=== PATIENT | male | born 1940 | race Caucasian/White ===

== ENCOUNTER 2018-06-14 07:50 | Inpatient (IN) | payer OTHER ==
--- NOTE | 2018-06-10 16:36 | RAD REPORT ---
EXAM DESCRIPTION: RAD - Chest Pa And Lat (2 Views) - 06/10/2018 4:08 pm CLINICAL HISTORY: Preop chest, pending hernia repair, hypertension COMPARISON: May 2011 TECHNIQUE: PA and lateral views of the chest were obtained. FINDINGS: The lungs are clear of an acute infiltrate, mass or failure. Lung markings are similar to comparison. Heart size is normal and central vasculature is within normal limits. No pleural effus ion or pneumothorax seen. No acute bony finding noted. No aortic abnormality. IMPRESSION: No acute cardiopulmonary process. No significant change from comparison.
[2018-06-10 16:46] LABS: Absolute Lymphocytes (CBC) 1.5 K/uL (0.7-4.9); Absolute Monocytes 0.5 K/uL (0.1-1.3); Absolute Neutrophil 4.5 K/uL (1.8-8.0); Basophils % 0.4 % (0-1.3); Eosinophils % 1.3 % (0-4.4); Lymphocytes % 22.8 % (15.3-44.8); MCH 31.5 pg (27.0-35.0); MCV 91.8 fL (80-100); MPV 8.8 fL (7.6-11.3); Monocytes % 7.8 % (3.3-12.3); RBC Red Blood Cell Count 5.01 M/uL (4.33-5.43)
[2018-06-10 17:08] LABS: Potassium 4.3 mmol/L (3.5-5.1)
--- NOTE | 2018-06-11 07:19 | EKG ---
Test Date: 2018-06-10 Test Time: 16:33:50 Alumni Relations Coordinator: RADHA MEASUREMENT RESULTS: Intervals: Rate: 58 AZ: 190 QRSD: 98 QT: 402 QTc: 394 [place]: P: 55 AZ: 190 QRS: -34 T: 25 INTERPRETIVE STATEMENTS: Sinus bradycardia Left axis deviation Minimal voltage criteria for LVH, may be normal variant Abnormal ECG No previous ECG available for comparison Electronically Signed On 06-11-18 07:18:50 DRAPERY WORKER by Ang Rosales
[2018-06-14] MEDS ORDERED: FENTANYL CITR 250 MCG/5 ML ONE (08:25)
[2018-06-14] MEDS ORDERED: LIDOCAINE 2% MPF 5 ML VIAL ONE (08:25)
[2018-06-14] MEDS ORDERED: ROCURONIUM 50 MG/5 ML VIAL IV ONE (08:25)
[2018-06-14] MEDS ORDERED: MIDAZOLAM HCL 2 MG/2 ML INJ ONE (08:25)
[2018-06-14] MEDS ORDERED: PROPOFOL 200 MG/20 ML VIAL IV ONE (08:25)
[2018-06-14] MEDS ORDERED: ONDANSETRON HCL 40 MG/20 ML VIAL ONE (08:25)
[2018-06-14] MEDS ORDERED: Ringers Lactate 1,000 ML IV ONE ×2 (08:28→10:17)
[2018-06-14] MEDS ORDERED: EPHEDRINE SULF 50 MG/10 ML SYR ONE (09:53)
[2018-06-14] MEDS ORDERED: Levofloxacin 750mg IV 750 MG/150 ML BAG IV ONE (10:00)
[2018-06-14] MEDS ORDERED: KETOROLAC 30 MG/ML INJ ONE (11:12)
[2018-06-14] MEDS ORDERED: GLYCOPYRROLATE 0.2 MG/ML SYR ONE (11:17)
[2018-06-14] MEDS ORDERED: NEOSTIGMINE 1 MG/ML -5 ML SYRINGE ONE (11:18)
--- NOTE | 2018-06-14 11:28 | P.BOP ---
Preoperative diagnosis: SBO, incarcerated incisional ventral hernia Postoperative diagnosis: same Primary procedure: 1. Exploratory laparotomy, 2. Small bowel resection with anastomosis Secondary procedure: 3. Repair of incisional incarcerated ventral hernia Other procedure(s): 4. Extensive intrabdominal lysis of adhesions Ginseng Farmer: Rosa White (Annika) Estimated blood loss: <100cc Specimen: small bowel, hernia sac Findings: see dictation Anesthesia: General Complications: None Drain(s): Nasogastric Transferred to: Recovery Room Condition: Good
[2018-06-14] MEDS ORDERED: MEPERIDINE HCL 50 MG/ML AMP ONE (12:03)
[2018-06-14 12:55] VITALS: BMI 25.8
[2018-06-14] MEDS: Levofloxacin 750mg IV 750 MG/150 ML BAG IV SCH (13:02)
[2018-06-14] MEDS: NA CHLORIDE 0.9% 1,000 ML IV SCH ×2 (13:02→22:43)
[2018-06-14] MEDS: HYDROMORPHONE HCL 1 MG/ML INJ IV PRN ×2 (18:00→22:43)
[2018-06-14] MEDS: ONDANSETRON 4 MG/2 ML VIAL IV PRN (22:46)
--- NOTE | 2018-06-14 23:13 | OP ---
Date of Procedure: 06/14/2018 Surgeon: Avni Mcbride MD Surveying Technician: Alpesh Nicole Preoperative Diagnoses: Small-bowel obstruction, incarcerated incisional ventral hernia. Postoperative Diagnoses: Small-bowel obstruction, incarcerated incisional ventral hernia, plus exten sive intra-abdominal adhesions. Procedures: 1.Exploratory laparotomy. 2.A small-bowel resection with anastomosis. 3.Repair of incisional incarcerated ventral hernia. 4.Extensive lysis of intra-abdominal adhesions. Estimated Blood Loss: Less than 100 cc. Specimen: Small bowel and hernia sac. Findings: The patient has a devitalized small bowel going through an incisional ventral hernia. The patient had extensive intra-abdominal adhesions from previous abdominal surgeries. Anesthesia: General plus local. Drains: A nasogastric tube. Indications: This is the case of a 78-year-old patient, comes to us with a small-bowel obstruction. He has been on and off an abdominal pain in that area. The patient has multiple incisions in the az st. Difficult to get the surgery since it was done in another institution several years ago. Appare ntly, he has a tumor in the past requiring surgery and then another hernia required surgery. Now, he is having a small-bowel obstruction. Through this, the incisional hernia needs to be repaired. Jt efits, alternatives, and risks of above procedure were fully explained to the patient, which include but are not limited to infection, bleeding, damage to adjacent structures, anesthesia complication, r ecurrence of bowel obstructions, pain, seromas, hematoma, AZ, and even . He also understands th is may not relieve any symptoms, he might need more than one surgical intervention. He understood, s igned a consent. Description Of Procedure: The patient was brought to the operating room and placed in supine positio n. A time-out was called. Abdominal area was prepped and draped in usual sterile fashion after anes thesia was induced. A midline incision was made. Incision was carried down to fascia. We noticed d evitalized fascia. We noticed a hernia sac with the small bowel coming through it. The small bowel looked narrowed, a scar present in that region. We have to extend incision more cephalad to be able to find a nice area since we have some any adhesions not only of omentum, but also to the small bowel to the anterior abdominal wall. It took a significant amount of time, more than at least 45 minutes to 1 hour just to do the lysis of adhesions to be able to release the bowel from that region and the n bowel loops, adhesions within itself have to be released until we were able to run the small bowel and large bowel. The hernia sac was removed. The fascial edges were debrided to the point that we j ust can bring it together the end, but small bowel at some areas showed some strictures that needed t o be addressed. We obtained proximal and distal control of the section of bowel that was devitalized and needed to be removed. Lysis of adhesions were checked once again. We minimized bleeding since we used the LigaSure. Proximal and distal control was obtained. We transected proximal and distal f rom the devitalized small bowel with a LYNNE-55. The mesentery was ligated with a LigaSure. No bleedi ng. The segment of small bowel was sent to the pathologist. After that, we obtained enterotomies pr oximal and distal, run a LYNNE-55 between, then fired the LYNNE to make sure there was no bowel in betwee n. Created anastomosis and then closed the enterotomies with TA-55. Excellent lumen in between. No kink. The mesentery was closed with chromic. We ran the bowel once again. No other area of the st rictures. Irrigated the area profusely and then proceeded to check the area of extensive lysis of ad hesions. It looked clean with no bleeding. NG tube in the stomach. We did check the rest of the la rge bowel with no extraluminal tumor seen. Pelvis with no tumor palpated. The patient has multiple ventral hernias. So, we just did get that into 1 entire defect, removed devitalized tissue, and then proceeded to close the fascia with #2 nylon in a running fashion. The area was irrigated. A 3-0 ch romic was used to close the subcutaneous tissue and then the skin with staple. Sponge count and inst rument counts were correct. The patient tolerated the procedure well. The patient was sent to recovery in stable condition. POP/ALEISHA Voice ID: [id number] Report ID: [id number]
[2018-06-15 05:21] LABS: Absolute Monocytes 0.6 K/uL (0.1-1.3); Absolute Neutrophil 7.9 K/uL (1.8-8.0); Basophils % 0.1 % (0-1.3); Eosinophils % 0.1 % (0-4.4); Hematocrit 40.3 % (39.6-49.0); Lymphocytes % 10.7 % (15.3-44.8); MCH 31.5 pg (27.0-35.0); MCV 93.3 fL (80-100); MPV 9.3 fL (7.6-11.3); Monocytes % 6.7 % (3.3-12.3); RBC Red Blood Cell Count 4.32 M/uL (4.33-5.43)
[2018-06-15 05:29] LABS: Potassium 3.9 mmol/L (3.5-5.1)
[2018-06-15] MEDS: HYDROMORPHONE HCL 1 MG/ML INJ IV PRN ×4 (06:16→22:51)
[2018-06-15] MEDS: ONDANSETRON 4 MG/2 ML VIAL IV PRN ×2 (06:16→13:24)
[2018-06-15] MEDS: PANTOPRAZOLE 40 MG INJ IVP SCH (08:55)
[2018-06-15] MEDS: SODIUM CHLORIDE 0.9% 10ML INJ IV PRN (08:57)
[2018-06-15] MEDS: NA CHLORIDE 0.9% 1,000 ML IV SCH ×3 (08:58→20:13)
[2018-06-15] MEDS: Levofloxacin 750mg IV 750 MG/150 ML BAG IV SCH (12:14)
--- NOTE | 2018-06-15 19:40 | PN ---
Date of Progress Note: 06/14/2018 Diagnoses: Small bowel obstruction, incarcerated incisional ventral hernia, extensive intraabdominal adhesions. Procedure: Laparotomy, bowel resection, repair of incisional incarcerated ventral hernia, and extens terra lysis of adhesions. The patient was doing well, out of bed. The physical therapy is working on him with ambulation. Usi ng incentive spirometry. NG tube is minimal. Physical Examination: Chest: Clear. Abdomen: Intact surgical site. Extremities: No calf tenderness. Laboratory Data: Blood work shows a WBC count of 9.6 with hemoglobin of 13.6 and chloride is 109. Plan: Discontinue NG tube, continue fluid; continue antibiotics, ambulation, incentive spirometry, a nd SCDs. We are going to be watching his blood pressure since he is not taking any diet [place] [facility] [place] because we have a fresh anastomosis, so the medical doctor will help us to control in case the blo od pressure becomes an issue. POP/ALEISHA Voice ID: [id number] Report ID: [id number]
--- NOTE | 2018-06-15 21:59 | P.CNS ---
Date of Consult: 06/15/18 - Date of Service Date of Service: 06/15/18 - Chief Complaint Reason for admission: SBO, incarcerated ventral hernia - History of Present Illness This is a 78 year old male with hx of HTN admitted for SBO and incarcerated incisional hernia. He has had complaints of abdominal pain, on and off. He has a history of multiple incisions in the past, recurrent hernia and a possible Ex- lap? Per patient, he has a history of ? small calcified mass? that needed to be removed and this required an "open surgery." He then had a hernia repair surgery as well. Patient is a poor historian and we are unable to get records for exact procedures/diagnoses. He presented to us with a SBO. He is now s/p an Ex-lap, SBO resection with anastomosis, repair of incisional, incarcerated ventral hernia and lysis of adhesions. He required NG tube placement post surgery, which has now been removed. He denies any abdominal pain at this time. He has not passed any gas and has not had any bowel movement. He is doing well otherwise - Allergies Allergies/Reactions: Allergy/AdvReac Type Severity Reaction Status Date / Time Penicillins AdvReac Itching/Hiv Verified 06/10/18 16:03 es/Rash Tetanus Vaccines and Toxoid AdvReac Itching/Hiv Verified 06/10/18 16:03 es/Rash - Home Medications Home Medications List: Reviewed Medication Instructions Recorded Losartan Potassium [Cozaar] 50 mg PO DAILY 06/10/18 Ubidecarenone [Co Q-10] 50 mg PO DAILY 06/14/18 - Review of Systems General: Unremarkable Eyes: Unremarkable ENT: Unremarkable Respiratory: Unremarkable Cardiovascular: Unremarkable Gastrointestinal: Nausea, As per HPI Genitourinary: Unremarkable Musculoskeletal: Unremarkable Integumentary: Unremarkable Neurological: Unremarkable Lymphatics: Unremarkable - Past Medical History -: htn -: arthritis -: umbilical hernia -: cancer sinus -: cataracts Has patient received pneumonia vaccine in the past: No Diabetic: No - Past Surgical History -: SINUS CA -: TONSILS -: CYST RT SIDE -: UMBILICAL HERNIA - Family History Father -: Heart disease Mother -: Cancer Notes: stomach - Social History Smoking Status: Former smoker Alcohol use: Yes CD- Drugs: No Caffeine use: Yes Place of Residence: Home - Physical Examination Weight: 160 lb Height: 5 ft 6 in Vital Signs: Temp Pulse Resp BP Pulse Ox 99.5 F 80 18 153/81 H 93 06/15/18 16:00 06/15/18 16:00 06/15/18 16:00 06/15/18 16:00 06/15/18 16:00 General: Awake, alert, oriented, not in distress, Other HEENT: Head atraumatic, normocephalic, Conjunctivae non-erythematous, Sclerae white, Mouth no thrush or edema, Ears/Nose no mass, lesion or discharge noted Neck: Supple, No JVD, lymph nodes, bruit or thyromegaly noted Chest: Unremarkable Lungs: Bilateral good equal air entry, Clear to auscultation, No rhonchi, No rales Heart: Normal heart sounds, No murmur or gallop Abdomen: Soft, Bowel sounds normal, No guarding, rigidity, tenderness or mass noted, No hepatosplenomegaly, distention or bruit noted, Other (Dressing clear, dry and intact) Extremities: No leg edema, No calf tenderness Skin: No rash, ulcer or cellulitis Lymphatics: No lymph node enlargement in neck, or supraclavicular, infraclavicular region Neurological: No focal neurological deficit External Genitalia: Deferred Rectal: Deferred - Studies Laboratory Data (last 24 hrs) 06/15/18 04:06: Sodium 142, Potassium 3.9, BUN 9, Creatinine 1.00, Glucose 111 H 06/15/18 04:06: WBC 9.6 D, Hgb 13.6, Hct 40.3, Plt Count 160 D - Assessment and Plan This is a 78 yr old male with: SBO s/p surgical intervention (Ex-lap, SBO resection with anastomosis, repair of incisional hernia and lysis of adhesions) Doing well s/p NGT removal, diet per surgery/primary team Pain control with IV medications Incarcerated, incisional ventral hernia s/p repair. HTN Patient on losartan at home. Will hold PO medication at this time and will restart once tolerating PO IV hydralazine ordered prn in the meanwhile We will continue to monitor BP and adjust medications as required Thank you for this consult. We will continue to follow patient with you. - Physician Review Physician Review: Patient Assessed, Agree with Above Assessment and Plan Time Spent Managing Pts Care (In Minutes): 45
[2018-06-16] MEDS: NA CHLORIDE 0.9% 1,000 ML IV SCH ×2 (05:29→14:39)
[2018-06-16] MEDS: SODIUM CHLORIDE 0.9% 10ML INJ IV PRN (08:25)
[2018-06-16] MEDS: PANTOPRAZOLE 40 MG INJ IVP SCH (08:25)
[2018-06-16] MEDS: HYDROMORPHONE HCL 1 MG/ML INJ IV PRN ×3 (08:26→23:25)
[2018-06-16] MEDS: HYDRALAZINE HCL 20 MG/ML VIAL IV PRN (08:36)
[2018-06-16] MEDS: Levofloxacin 750mg IV 750 MG/150 ML BAG IV SCH (12:52)
--- NOTE | 2018-06-16 18:42 | P.PN ---
Subjective Date of Service: 06/19/18 Chief Complaint: SBO, incarcerated ventral hernia Subjective: No new changes, Improving Review of Systems As noted Physical Examination - Vital Signs Temperature: 98.4 F Blood Pressure: 151/96 Pulse: 85 Respirations: 18 Pulse Ox (%): 95 - Physical Exam General: Alert, In no apparent distress HEENT: Atraumatic, PERRLA, EOMI Neck: Supple, JVD not distended Respiratory: Clear to auscultation bilaterally, Normal air movement Cardiovascular: Regular rate/rhythm, Normal S1 S2 Gastrointestinal: Normal bowel sounds, No tenderness Musculoskeletal: No tenderness Integumentary: No rashes Neurological: Normal speech, Normal tone, Normal affect Lymphatics: No axilla or inguinal lymphadenopathy Assessment And Plan - Plan This is a 78 yr old male with: SBO s/p surgical intervention (Ex-lap, SBO resection with anastomosis, repair of incisional hernia and lysis of adhesions) Doing well s/p NGT removal, diet per surgery/primary team Pain control with IV medications Incarcerated, incisional ventral hernia s/p repair. HTN Patient on losartan at home. Will hold PO medication at this time and will restart once tolerating PO IV hydralazine ordered prn in the meanwhile We will continue to monitor BP and adjust medications as required Thank you for this consult. We will continue to follow patient with you. Physician Review: Patient Assessed, Agree with Above Assessment and Plan
[2018-06-17] MEDS: NA CHLORIDE 0.9% 1,000 ML IV SCH ×4 (01:14→20:00)
[2018-06-17] MEDS: HYDROMORPHONE HCL 1 MG/ML INJ IV PRN ×2 (08:59→18:40)
[2018-06-17] MEDS: PANTOPRAZOLE 40 MG INJ IVP SCH (08:59)
[2018-06-17] MEDS: HYDRALAZINE HCL 20 MG/ML VIAL IV PRN (09:00)
[2018-06-17] MEDS: SODIUM CHLORIDE 0.9% 10ML INJ IV PRN (09:01)
[2018-06-17] MEDS: Levofloxacin 750mg IV 750 MG/150 ML BAG IV SCH (12:36)
[2018-06-17] MEDS ORDERED: LOSARTAN POTASSIUM 50 MG TABLET PO ONE (18:00)
--- NOTE | 2018-06-17 21:29 | P.PN ---
Subjective Date of Service: 06/19/18 Chief Complaint: SBO, incarcerated ventral hernia Subjective: No new changes, No C/O voiced, Improving Review of Systems As noted Physical Examination - Vital Signs Temperature: 98.7 F Blood Pressure: 157/90 Pulse: 80 Respirations: 18 Pulse Ox (%): 95 - Physical Exam General: Alert, In no apparent distress HEENT: Atraumatic, PERRLA, EOMI Neck: Supple, JVD not distended Respiratory: Clear to auscultation bilaterally, Normal air movement Cardiovascular: Regular rate/rhythm, Normal S1 S2 Gastrointestinal: Normal bowel sounds, No tenderness Musculoskeletal: No tenderness Integumentary: No rashes Neurological: Normal speech, Normal tone, Normal affect Lymphatics: No axilla or inguinal lymphadenopathy Assessment And Plan - Plan This is a 78 yr old male with: SBO s/p surgical intervention (Ex-lap, SBO resection with anastomosis, repair of incisional hernia and lysis of adhesions) Doing well s/p NGT removal, diet per surgery/primary team Pain control with IV medications Incarcerated, incisional ventral hernia s/p repair. HTN Patient on losartan at home. Restart home PO medications IV hydralazine ordered prn in the meanwhile We will continue to monitor BP and adjust medications as required Thank you for this consult. We will continue to follow patient with you. Physician Review: Patient Assessed, Agree with Above Assessment and Plan
[2018-06-18] MEDS: PANTOPRAZOLE 40 MG INJ IVP SCH (08:59)
[2018-06-18] MEDS: SODIUM CHLORIDE 0.9% 10ML INJ IV PRN (09:00)
[2018-06-18] MEDS: LOSARTAN POTASSIUM 50 MG TABLET PO SCH (09:00)
[2018-06-18] MEDS: UBIDECARENONE 50 MG PO SCH (09:00)
[2018-06-18] MEDS: NA CHLORIDE 0.9% 1,000 ML IV SCH ×4 (10:19→22:01)
[2018-06-18] MEDS: Levofloxacin 750mg IV 750 MG/150 ML BAG IV SCH (12:27)
--- NOTE | 2018-06-18 13:21 | P.PN ---
Subjective Date of Service: 06/17/18 Chief Complaint: SBO, incarcerated ventral hernia Subjective: Ambulating, Improving Review of Systems Respiratory: Unremarkable Cardiovascular: Unremarkable Gastrointestinal: Vomiting (no), Distention, Melena (no), Hematochezia (no), As per HPI Physical Examination - Vital Signs Temperature: 98.6 F Blood Pressure: 153/85 Pulse: 60 Respirations: 16 Pulse Ox (%): 98 - Physical Exam General: Alert, In no apparent distress HEENT: PERRLA, EOMI Gastrointestinal: Hypoactive, Distended Musculoskeletal: No erythema, No tenderness, No warmth Assessment And Plan - Plan clears Oob Incentive spirometry Physician Review: Patient Assessed, Agree with Above Assessment and Plan
--- NOTE | 2018-06-18 18:22 | PN ---
Diagnoses: Small bowel obstruction, incarcerated incisional ventral hernia status post repair, exten sive intra-abdominal adhesions. Subjective: The patient is doing better. Finally today, he started to pass some gas this afternoon. No fever. Ambulating. Review of Systems: Ten points otherwise unremarkable. Objective: Chest: Clear. Abdomen: Soft and depressible. Intact midline incision. Extremities: No calf tenderness. Plan: We are going to advance to soft diet. If he can tolerate diet, then he will be able to be dis charged home. The diet will this afternoon. We already gave him medications for his blood pressure with the help of the hospitalist. He understands, if he gets discharged, the importance of no heavy lifting, and follow up in my office in 1 week. POP/ALEISHA Voice ID: [id number] Report ID: [id number]
[2018-06-18 23:33] VITALS: O2SAT 97
[2018-06-19] MEDS: NA CHLORIDE 0.9% 1,000 ML IV SCH ×2 (01:20→12:00)
[2018-06-19] MEDS: UBIDECARENONE 50 MG PO SCH (09:00)
[2018-06-19] MEDS: LOSARTAN POTASSIUM 50 MG TABLET PO SCH (09:01)
[2018-06-19] MEDS: PANTOPRAZOLE 40 MG INJ IVP SCH (09:01)
--- NOTE | 2018-06-19 11:02 | P.DS ---
Admission Date: 06/14/18 Discharge Date: 06/19/18 Disposition: ROUTINE DISCHARGE Discharge Condition: GOOD Reason for Admission: SBO, incarcerated ventral hernia Hospital Course: unremarkable Vital Signs/Physical Exam: Temp Pulse Resp BP Pulse Ox 97.9 F 84 18 156/89 H 92 06/19/18 08:00 06/19/18 08:00 06/19/18 08:00 06/19/18 08:00 06/19/18 08:00 General: Alert, In no apparent distress, Oriented x3, Cooperative HEENT: PERRLA, EOMI Neck: Supple Gastrointestinal: Soft and benign (intact midline) Integumentary: No erythema, No warmth, No cyanosis Neurological: Normal gait, Normal speech Laboratory Data at Discharge: WBC 9.6 K/uL (4.3-10.9) D 06/15/18 04:06 Hgb 13.6 g/dL (13.6-17.9) 06/15/18 04:06 Hct 40.3 % (39.6-49.0) 06/15/18 04:06 Plt Count 160 K/uL (152-406) D 06/15/18 04:06 Sodium 142 mmol/L (136-145) 06/15/18 04:06 Potassium 3.9 mmol/L (3.5-5.1) 06/15/18 04:06 BUN 9 mg/dL (7-18) 06/15/18 04:06 Creatinine 1.00 mg/dL (0.55-1.3) 06/15/18 04:06 Glucose 111 mg/dL (74-106) H 06/15/18 04:06 Home Medications: Losartan Potassium [Cozaar] 50 mg PO DAILY 06/10/18 Ubidecarenone [Co Q-10] 50 mg PO DAILY 06/14/18 Patient Discharge Instructions: abdominal binder while out of bed. Soft diet Diet: AHA Activity: No lifting more than 10 lbs Followup: Avni Mcbride MD [ACTIVE - CAN ADMIT] - 1 Week
[2018-06-19] MEDS: HYDROMORPHONE HCL 1 MG/ML INJ IV PRN (11:06)
[2018-06-19] MEDS: Levofloxacin 750mg IV 750 MG/150 ML BAG IV SCH (11:06)
[2018-06-19 17:47] VITALS: BP 151/96; TEMP 98.4
--- NOTE | 2018-06-19 17:48 | P.PN ---
Subjective Date of Service: 06/19/18 Chief Complaint: SBO, incarcerated ventral hernia Subjective: No new changes, No C/O voiced, Tolerating diet, Improving Patient seen and examined at bedside. No family at bedside. Chart reviewed and case discussed with nursing staff. Review of Systems As noted Physical Examination - Vital Signs Temperature: 98.4 F Blood Pressure: 151/96 Pulse: 85 Respirations: 18 Pulse Ox (%): 95 - Physical Exam General: Alert, In no apparent distress, Oriented x3 HEENT: Atraumatic, PERRLA, EOMI Neck: Supple, JVD not distended Respiratory: Clear to auscultation bilaterally, Normal air movement Cardiovascular: Regular rate/rhythm, Normal S1 S2 Gastrointestinal: Normal bowel sounds, No tenderness Musculoskeletal: No tenderness Integumentary: No rashes Neurological: Normal speech, Normal tone, Normal affect Lymphatics: No axilla or inguinal lymphadenopathy Assessment And Plan - Plan This is a 78 yr old male with: SBO s/p surgical intervention (Ex-lap, SBO resection with anastomosis, repair of incisional hernia and lysis of adhesions) Doing well s/p NGT removal, diet per surgery/primary team Pain control with IV medications Incarcerated, incisional ventral hernia s/p repair. HTN Blood pressure stable on home medications. Patient medical cleared for discharge Thank you for this consult. Physician Review: Patient Assessed, Agree with Above Assessment and Plan
== END 2018-06-19 14:07 | disposition home or self-care (01) | DRG 331 ==
LOC: OR 07:50 → 4TH 11:22
PROVIDERS: ADMIT Surgery; ATTEND Surgery
PROC: 0DNE0ZZ Release Large Intestine, Open Approach (ICD-10-PCS; 2018-06-14)
PROC: 0DN80ZZ Release Small Intestine, Open Approach (ICD-10-PCS; 2018-06-14)
PROC: 0DNU0ZZ Release Omentum, Open Approach (ICD-10-PCS; 2018-06-14)
PROC: 0D9670Z Drainage of Stomach with Drainage Device, Via Natural or Artificial Opening (ICD-10-PCS; 2018-06-14)
PROC: 0DT80ZZ Resection of Small Intestine, Open Approach (ICD-10-PCS; principal; 2018-06-14 09:30)
PROC: 0WQF0ZZ Repair Abdominal Wall, Open Approach (ICD-10-PCS; 2018-06-14 09:30)
DX: K43.0 Incisional hernia with obstruction, without gangrene (principal); K66.0 Peritoneal adhesions (postprocedural) (postinfection); I10 Essential (primary) hypertension
CPT/HCPCS: 36415; 71046; 80048; 85025; 86850; 86900; 86901; 88305; 88307; 93005; 97116; 97162; 97530; C9113; J0360; J1170; J2175; J2250; J2405; J2704; J2710; J3010; J7030